=== PATIENT | female | born 1930 ===

== ENCOUNTER → 2017-09-16 | Outpatient (CLI) | payer OTHER ==
[~2017-09-16] VITALS: Ht 162.6 cm; Wt 53.1 kg
[~2017-09-16] MED LIST: ACCUNEB0.63 MG/3 IH; AVANDAMET 1 MG/1 TAB PO; HUMULIN 70/30 PE3 ML SQ; MEDROL4 MG PO; SINGULAIR10 MG PO; THEOPHYLLINE A200 MG PO; ZITHROMAX500 MG PO; ZOCOR20 MG PO
== END | disposition home or self-care (01) ==
LOC: OFIC 805 14:00
DX: H61.23 Impacted cerumen, bilateral (principal); H91.8X3 Other specified hearing loss, bilateral

== ENCOUNTER 2017-10-07 14:20 | Outpatient (CLI) | payer OTHER ==
[~2017-10-07] VITALS: Ht 152.4 cm; Wt 53.1 kg
== END 2017-10-07 14:40 | disposition home or self-care (01) ==
LOC: OFIC 805 14:20
DX: H61.23 Impacted cerumen, bilateral (principal); H90.3 Sensorineural hearing loss, bilateral